=== PATIENT | male | born 1995 | race Caucasian/White ===

== ENCOUNTER → 2018-02-13 | Day surgery (SDC) | payer OTHER ==
--- NOTE | 2018-02-10 13:40 | History & Physical Pre-Op ---
General Information and HPI History of Present Illness: Chris is a 22-year-old male with a long-standing and worsening complaint of painful hammertoes involving the second third fourth and fifth digits left and right feet. The patient has undergone an extended course of conservative care, including shoe gear and activity modification, rest, immobilization and courses of NSAIDs. None of this is yielded him any significant relief. The patient presents today for preoperative surgical consultation. As. Past History Surgical History Pertinent Surgical History: non-contributory Review of Systems Review of Systems: Unremarkable except for that noted in history of present illness Exam & Diagnostic Data Physical Exam: Lungs clear bilaterally. Heart sounds rate and rhythm regular. Lower extremity physical exam demonstrates intact pedal pulses bilaterally. Both dorsalis pedis and posterior tibial arteries are palpable bilaterally. Patient without any sensory motor deficits. Deep tendon reflexes grossly intact. Patient noted to have significant pain with palpation and range of motion through the second third and fourth proximal interphalangeal joints of the left and right feet. Assessment/Plan Assessment/Plan: Painful hammertoes left and right feet. A lengthy discussion reviewing both surgical and conservative options was held the patient at bedside and the patient elects to go forward surgery despite the risks. As Ranked By This Provider Problem List: 1. Acquired bilateral hammer toes Attending MD Review Statement Attending Statement Attending MD Statement: examined this patient
[~2018-02-13] VITALS: Ht 185.4 cm; Wt 92.1 kg
--- NOTE | 2018-02-13 11:40 | Operative Report ---
Operative/Inv Procedure Report Surgery Date: 02/13/18 Name of Procedure: 1 arthroplasty second toe right foot 2 arthroplasty third toe right foot 3 arthroplasty fourth toe right foot 4 arthroplasty second toe left foot 5 arthroplasty third toe left foot 6 arthroplasty fourth toe left foot 7 intraoperative administration of ankle block anesthesia Pre-Operative Diagnosis: 1 hammertoe second toe right foot 2 hammertoe third toe right foot 3 hammertoe fourth toe right foot 4 hammertoe second toe left foot 5 hammertoe third toe left foot 6 hammertoe fourth toe left foot Post-Operative Diagnosis: The same Estimated Blood Loss: scant Surgeon/Board Turner: Lima TREVINO,Gil Samaniego DPM Anesthesia: moderate sedation, block Operative/Procedure Note Note: After obtaining informed consent the patient was brought to the operating room and placed on the operating table in the supine position. The patient isn't securely fastened to the operating table utilizing safety belt. After administration of IV sedation, 10 mL of 0.5% Marcaine plain was infiltrated about the patient's left and right ankles. 2 well-padded ankle tourniquets placed about the patient's bilateral lower extremity's. 600 mg of clindamycin were delivered intravenously times one dose. The left and right feet were then scrubbed, prepped and draped in usual aseptic manner. Right lower extremity was elevated to exsanguinate the limb, at which point the ankle tourniquet was inflated 250 mmHg. Attention directed dorsal aspect of the second third fourth digits right foot. Transversely oriented semielliptical incisions centered over the proximal interphalangeal joints were incised with 15 blade. The ellipses of skin were freed and passed from the operative field. Transverse tenotomies were performed exposing the heads of the proximal phalanges of the second third and fourth digits. These were then removed a sagittal bone saw. The extensor tendons reapproximate 4-0 Vicryl and the skin edges reprepped with 4-0 nylon. Incision dressed with Xeroform 4 x 4's Kerlix and an Francesco wrap. The tourniquet was then deflated. Next, the left lower extremity was elevated to examine to limb which point the ankle tourniquet inflated 250 mmHg. Attention directed dorsal aspect of the second third and fourth digits. Transversely oriented semielliptical incisions centered over the proximal interphalangeal joints were incised with 15 blade. The ellipses of skin were freed and passed from the operative field. Transverse tenotomies performed exposing the heads of the proximal phalanges of the second third and fourth digits. These were then removed sagittal bone saw. The extensor tendons reapproximate 4-0 Vicryl. Skin edges reprepped with 4-0 nylon. Incision dressed with Xeroform 4 x 4's Kerlix and an Francesco wrap. The patient was noted tolerate both procedure and anesthesia well and the patient was transported from the operative room to recovery by sent stable best assess intact all digits bilateral feet. Please cc a copy of this dictation to Gregorio Samaniego DPM.
== END ==
LOC: STS 03:18
DX: M20.41 Other hammer toe(s) (acquired), right foot (principal)
CPT/HCPCS: J0131; J1100; J2001; J2250; J2405